=== PATIENT | female | born 1950 | race Caucasian/White ===

== ENCOUNTER 2017-03-20 16:50 | Observation (INO) | payer MEDICARE ==
[~2017-03-20] VITALS: Ht 172.7 cm; Wt 80.0 kg
[2017-03-20 16:52] VITALS: BP 109/71; PULSE 81; RESP 16; TEMP 98.1; O2SAT 98
--- NOTE | 2017-03-20 17:00 | PD ---
Physical Exam Date Seen by Provider: March 20, 2017 Time Seen by Provider: 16:58 Narrative 67 yo female here for BP. Per patient BP was low in the 80s systolic. Feeling lightheaded at the time. No falls or injuries. NO chest pain or SOB. NO pain. Has felt nauseous and has blurry vision. Vitals sign stable. Patient awaiting bed placement. Data Data Last Documented VS Vital Signs Date Time Temp Pulse Resp B/P Pulse Ox O2 Delivery O2 Flow Rate FiO2 03/20/17 16:52 98.1 81 16 109/71 98 MDM Medical Record Reviewed: Yes Supervised Visit with ELIJAH: No Joey Lemons March 20, 2017 17:00
[2017-03-20] MEDS ORDERED: SODIUM CHLOR 0.9% 1000 ML INJ 1,000 ML IV ONE ×2 (17:15→18:45)
--- NOTE | 2017-03-20 17:42 | RADRPT ---
EXAM DATE/TIME: 03/20/2017 17:17 [facility] COMPARISON: No previous studies available for comparison. INDICATIONS : Palpitations. MEDICAL HISTORY : None. SURGICAL HISTORY : None. ENCOUNTER: Initial ACUITY: 1 day PAIN SCORE: 0/10 LOCATION: Bilateral chest FINDINGS: A single view of the chest demonstrates the lungs to be symmetrically aerated without evidence of mas s, infiltrate or effusion. The cardiomediastinal contours are unremarkable. Osseous structures are intact. CONCLUSION: Normal examination for a patient of this age. Caleb Baez MD on March 20, 2017 at 17:40 Board Certified Radiologist. This report was verified electronically.
[2017-03-20 17:46] VITALS: BP 99/71
[2017-03-20 17:47] LABS: AUTOMATED NEUTROPHIL # 7.6 TH/MM3 (1.8-7.7); BASOPHIL % 0.3 % (0.0-2.0); EOSINOPHIL # 0.2 TH/MM3 (0-0.4); EOSINOPHIL % 1.4 % (0.0-4.0); HEMATOCRIT 38.2 % (35.0-46.0); HEMO FLAGS DIFF FINAL; LYMPH % 31.3 % (9.0-44.0); LYMPHOCYTE # 3.9 TH/MM3 (1.0-4.8); MEAN CELL VOLUME 90.4 FL (80.0-100.0); MEAN CORPUSCULAR HEMOGLOBIN 29.5 PG (27.0-34.0); MEAN CORPUSCULAR HGB CONC 32.6 % (32.0-36.0); MONO % 5.7 % (0.0-8.0); NEUT % 61.3 % (16.0-70.0); PLATELET COUNT 295 TH/MM3 (150-450); RED BLOOD COUNT 4.22 MIL/MM3 (4.00-5.30); WHITE BLOOD COUNT 12.3 TH/MM3 (4.0-11.0)
--- NOTE | 2017-03-20 17:53 | RADRPT ---
EXAM DATE/TIME: 03/20/2017 17:37 [facility] COMPARISON: No previous studies available for comparison. INDICATIONS : Cephalgia with dizziness and blurred vision. RADIATION DOSE: 41.26 CTDIvol (mGy) MEDICAL HISTORY : Hypertension. Myocardial infarction. SURGICAL HISTORY : Cholecystectomy. Hysterectomy.Cervical fusion. ENCOUNTER: Initial ACUITY: 1 day PAIN SCALE: 3/10 LOCATION: cranial TECHNIQUE: Multiple contiguous axial images were obtained of the head. Using automated exposure control and adj ustment of the mA and/or kV according to patient size, radiation dose was kept as low as reasonably a chievable to obtain optimal diagnostic quality images. FINDINGS: CEREBRUM: The ventricles are normal for age. No evidence of midline shift, mass lesion, hemorrhage or acute in farction. No extra-axial fluid collections are seen. POSTERIOR FOSSA: The cerebellum and brainstem are intact. The 4th ventricle is midline. The cerebellopontine angle i s unremarkable. EXTRACRANIAL: The visualized portion of the orbits is intact. SKULL: The calvaria is intact. No evidence of skull fracture. CONCLUSION: Normal examination for a patient of this age. Caleb Baez MD on March 20, 2017 at 17:50 Board Certified Radiologist. This report was verified electronically.
[2017-03-20 17:57] LABS: ANION GAP 10 MEQ/L (5-15); AST (GOT) 15 U/L (15-37); BICARBONATE 25.8 MEQ/L (21.0-32.0); BLOOD UREA NITROGEN 20 MG/DL (7-18); CHLORIDE 105 MEQ/L (98-107); GLOMERULAR FILTRATION RATE 56 ML/MIN (>89); MAGNESIUM 2.4 MG/DL (1.5-2.5); POTASSIUM 3.2 MEQ/L (3.5-5.1); SODIUM (NA) 141 MEQ/L (136-145)
[2017-03-20 17:58] LABS: ALT (GPT) 21 U/L (10-53)
[2017-03-20 18:01] LABS: ALKALINE PHOSPHATASE 65 U/L (45-117); TOTAL BILIRUBIN ADULT 0.3 MG/DL (0.2-1.0)
[2017-03-20 18:05] LABS: CREATINE KINASE 88 U/L (26-192)
[2017-03-20 18:07] LABS: BLOOD, URINE NEG (NEG); COMMENT (UR) CULTURE INDICATED; CULTURE IF INDICATED CULTURE INDICATED; GLUCOSE,URINE NEG (NEG); KETONE, URINE NEG (NEG); MUCUS URINE FEW /lpf (OCC); NITRITE,URINE NEG (NEG); SQUAMOUS EPITHELIAL CELL URINE 2 /hpf (0-5); URINE COLOR YELLOW (YELLW/STRAW)
[2017-03-20 18:11] LABS: APTT (PATIENT) 24.1 SEC (24.3-30.1); INTERNATIONAL NORMALIZED RATIO 0.9 RATIO
[2017-03-20] MEDS ORDERED: PIPERACIL-TAZO 4.5 GM PREMIX 100 ML IV STA (18:45)
[2017-03-20 19:00] VITALS: BP 107/65; PULSE 65; RESP 16; O2SAT 98
--- NOTE | 2017-03-20 19:12 | PD ---
HPI Chief Complaint: Dizziness Time Seen by Provider: 17:13 Travel History International Travel<30 days: No Contact w/Intl Traveler<30days: No Traveled to known affect area: No History of Present Illness HPI 67 y/o female presents with dizziness with systolic blood pressure of 80 when she normally runs high. She's also been having nausea and general ill feeling with headache. She denies other concurrent complaints. She states she feels worse when she moves around. Duration is past couple hours. She states she's never had this before. Quality is lightheaded. Severity is feeling like gonna pass out and worsening. PFSH Past Medical History Cardiovascular Problems: Yes ([place], [place]) Past Surgical History Cholecystectomy: Yes Eye Surgery: Yes Hysterectomy: Yes Other Surgery: Yes (breaset augmentation, ) Social History Alcohol Use: No Tobacco Use: No Substance Use: No Allergies-Medications (Allergen,Severity, Reaction): Coded Allergies: Imitrex (Verified Allergy, Severe, HIGH BP, 03/20/17) Cipro (Verified Allergy, Intermediate, RASH, 03/20/17) Review of Systems Except as stated in HPI: all other systems reviewed are Neg Physical Exam Narrative GENERAL: Well-nourished, well-developed patient. SKIN: Warm and dry. HEAD: Normocephalic and atraumatic. EYES: No injection or drainage. ENT: No nasal drainage noted. NECK: Supple, trachea midline. CARDIOVASCULAR: Regular rate and rhythm RESPIRATORY: Breath sounds equal bilaterally. No accessory muscle use. GASTROINTESTINAL: Abdomen soft, non-tender, nondistended. EXTREMITIES: No edema. NEUROLOGICAL: Awake and alert. Motor and sensory grossly within normal limits. Normal speech. Data Data Last Documented VS Vital Signs Date Time Temp Pulse Resp B/P Pulse Ox O2 Delivery O2 Flow Rate FiO2 03/20/17 17:46 99/71 03/20/17 16:52 98.1 81 16 98 Orders Magnesium (Mg) (03/20/17 17:06) Phosphorus (Po4) (03/20/17 17:06) Complete Blood Count With Diff (03/20/17 17:06) Comprehensive Metabolic Panel (03/20/17 17:06) Ckmb (Isoenzyme) Profile (03/20/17 17:06) Troponin I (03/20/17 17:06) Urinalysis - C+S If Indicated (03/20/17 17:06) Act Partial Throm Time (Ptt) (03/20/17 17:06) Prothrombin Time / Inr (Pt) (03/20/17 17:06) Chest, Single Ap (03/20/17 ) Electrocardiogram (03/20/17 ) Blood Culture (03/20/17 17:06) Iv Access Insert/Monitor (03/20/17 17:06) Ecg Monitoring (03/20/17 17:06) Oximetry (03/20/17 17:06) Type And Screen (03/20/17 17:06) Lactic Acid (03/20/17 17:06) Ct Brain W/O Iv Contrast(Rout) (03/20/17 ) Sodium Chlor 0.9% 1000 Ml Inj (Ns 1000 M (03/20/17 17:15) Urine Culture (03/20/17 17:45) Piperacil-Tazo 4.5 Gm Premix (Zosyn 4.5 (03/20/17 18:45) Sodium Chlor 0.9% 1000 Ml Inj (Ns 1000 M (03/20/17 18:45) Admit Order (Ed Use Only) (03/20/17 18:51) Labs Laboratory Tests Test 03/20/17 03/20/17 03/20/17 03/20/17 17:05 17:25 17:32 17:45 White Blood Count 12.3 TH/MM3 Red Blood Count 4.22 MIL/MM3 Hemoglobin 12.4 GM/DL Hematocrit 38.2 % Mean Corpuscular Volume 90.4 FL Mean Corpuscular Hemoglobin 29.5 PG Mean Corpuscular Hemoglobin 32.6 % Concent Red Cell Distribution Width 14.0 % Platelet Count 295 TH/MM3 Mean Platelet Volume 8.2 FL Neutrophils (%) (Auto) 61.3 % Lymphocytes (%) (Auto) 31.3 % Monocytes (%) (Auto) 5.7 % Eosinophils (%) (Auto) 1.4 % Basophils (%) (Auto) 0.3 % Neutrophils # (Auto) 7.6 TH/MM3 Lymphocytes # (Auto) 3.9 TH/MM3 Monocytes # (Auto) 0.7 TH/MM3 Eosinophils # (Auto) 0.2 TH/MM3 Basophils # (Auto) 0.0 TH/MM3 CBC Comment DIFF FINAL Differential Comment Prothrombin Time 10.0 SEC Prothromb Time International 0.9 RATIO Ratio Activated Partial 24.1 SEC Thromboplast Time Sodium Level 141 MEQ/L Potassium Level 3.2 MEQ/L Chloride Level 105 MEQ/L Carbon Dioxide Level 25.8 MEQ/L Anion Gap 10 MEQ/L Blood Urea Nitrogen 20 MG/DL Creatinine 1.00 MG/DL Estimat Glomerular Filtration 56 ML/MIN Rate Random Glucose 111 MG/DL Calcium Level 8.7 MG/DL Phosphorus Level 2.2 MG/DL Magnesium Level 2.4 MG/DL Total Bilirubin 0.3 MG/DL Aspartate Amino Transf 15 U/L (AST/SGOT) Alanine Aminotransferase 21 U/L (ALT/SGPT) Alkaline Phosphatase 65 U/L Total Creatine Kinase 88 U/L Troponin I LESS THAN 0.02 NG/ML Total Protein 6.7 GM/DL Albumin 3.7 GM/DL Blood Type A POSITIVE Antibody Screen NEGATIVE Blood Bank Comment Lactic Acid Level 1.7 mmol/L Urine Color YELLOW Urine Turbidity HAZY Urine pH 7.0 Urine Specific [place] 1.026 Urine Protein NEG mg/dL Urine Glucose (UA) NEG mg/dL Urine Ketones NEG mg/dL Urine Occult Blood NEG Urine Nitrite NEG Urine Bilirubin NEG Urine Urobilinogen 2.0 MG/DL Urine Leukocyte Esterase LARGE Urine RBC 13 /hpf Urine WBC 29 /hpf Urine Squamous Epithelial 2 /hpf Cells Urine Mucus FEW /lpf Microscopic Urinalysis Comment CULTURE INDICATED MDM Medical Decision Making Medical Screen Exam Complete: Yes Emergency Medical Condition: Yes Medical Record Reviewed: Yes (past history confirmed) Interpretation(s) CBC & BMP Diagram 03/20/17 17:05 UA with UTI Last [address] 03/20/17 0000 Signed Impressions: Service Date/Time: Monday, March 20, 2017 17:37 - CONCLUSION: Normal examination for a patient of this age. Caleb Baez MD Chest X-Ray 03/20/17 0000 Signed Impressions: Service Date/Time: Monday, March 20, 2017 17:17 - CONCLUSION: Normal examination for a patient of this age. Caleb Baez MD Differential Diagnosis Renal failure, anemia, sepsis, hypovolemia Narrative Course Will check blood work, urinalysis, chest x-ray, CT brain and reevaluate Patient with UTI with hypotension. She responded IV fluid hydration. Given antibiotics and will place in the hospital for further care Physician Communication Physician Communication dr harp states to place in observation on the floor Diagnosis Primary Impression: UTI (urinary tract infection) Qualified Code: N39.0 - Urinary tract infection without hematuria, site unspecified Additional Impression: Hypotension Qualified Code: I95.9 - Hypotension, unspecified hypotension type Admitting Information Admitting Physician Requests: Observation Elvira Benitez MD March 20, 2017 19:12
[2017-03-20 19:39] VITALS: BP 103/56; PULSE 64; RESP 16; O2SAT 98
--- NOTE | 2017-03-20 21:10 | HHI.HP ---
HPI Service [facility] Primary Care Physician Mirella Schofield MD Admission Diagnosis uti, hypotension Chief Complaint: Lightheadedness, headache, weakness, low blood pressure Travel History International Travel<30 Days: No Contact w/Intl Traveler <30 Da: No Traveled to Known Affected Are: No Sepsis Criteria SIRS Criteria (2 or more): WBC > 56452, < 4000 or > 10% bands Sepsis Criteria (SIRS+source): Infect source susp/known Severe Sepsis (+one): Hypotension Criteria Outcome: Meets severe sepsis criteria History of Present Illness 67-year-old female with underlying hypertension presents to the ER secondary to some low blood pressures at home with feelings of lightheadedness and frontal headache which started around 3 PM today. She noted that she felt a little nauseated earlier as well. She's had no vomiting no chest pain. She noted her blood pressure at home was in the 80s over 50s on several occasions earlier today. This prompted her to contact her physician's office who instructed her to go to the ER due to the low blood pressure. On evaluation in the ER was noted her systolic pressure was in the upper 90s to low 100s. Heart rate has been stable in the 80s. Her white count level elevated at 12.3 and urinalysis noted for several abnormalities which could be seen with urinary tract infection. Patient specifically denies any urinary symptoms such as urinary frequency, dysuria, hematuria, urgency. She has had urinary tract infections in the past and states she does not feel like she has one now. Of note she was started on Lortab approximate 2 weeks ago by her pain management physician. She doesn't like narcotics and generally takes only one Lortab or less per day. She has not been following her blood pressure since starting on the Lortab and she has continued her blood pressure medication. She had been given IV fluids and antibiotics in the ER and feels somewhat better although she says she feels weak still. Still has slight headache in the frontal area but not the worst headache of her life and no sudden onset or thunderclap character. Review of Systems Constitutional: COMPLAINS OF: Fatigue, Dizziness Endocrine: DENIES: Abnorml menstrual pattern, Heat/cold intolerance, Polydipsia , Polyuria, Polyphagia Eyes: DENIES: Blurred vision, Diplopia, Eye inflammation, Eye pain, Vision loss , Photosensitivity, Double Vision Ears, nose, mouth, throat: DENIES: Tinnitus, Hearing loss, Vertigo, Nasal discharge, Oral lesions, Throat pain, Hoarseness, Ear Pain, Running Nose, Epistaxis, Sinus Pain, Toothache, Odynophagia Respiratory: DENIES: Apneas, Cough, Snoring, Wheezing, Hemoptysis, Sputum production, Shortness of breath Cardiovascular: DENIES: Chest pain, Palpitations, Syncope, Dyspnea on Exertion , PND, Lower Extremity Edema, Orthopnea, Claudication Gastrointestinal: COMPLAINS OF: Nausea, DENIES: Abdominal pain, Black stools, Bloody stools, BRB per rectum, Constipation, Diarrhea, GERD, Reflux, Vomiting, Difficulty Swallowing, Anorexia, See HPI Genitourinary: DENIES: Abnormal vaginal bleeding, Dysmenorrhea, Dyspareunia, Sexual dysfunction, Urinary frequency, Urinary incontinence, Urgency, Hematuria , Dysuria, Nocturia, Vaginal discharge Musculoskeletal: COMPLAINS OF: Back pain Integumentary: DENIES: Abnormal pigmentation, Pruritus, Rash, Nail changes, Breast masses, Breast skin changes, Nipple discharge Hematologic/lymphatic: DENIES: Bruising, Lymphadenopathy Immunologic/allergic: DENIES: Eczema, Urticaria Neurologic: COMPLAINS OF: Poor Balance Psychiatric: COMPLAINS OF: Anxiety Past Family Social History Past Medical History Anxiety Atherosclerosis of the aorta Lumbar disc degeneration with chronic low back pain Hypertension Migraine headaches Vertigo Past Surgical History Bilateral breast implants Corneal Lasik procedure Gallbladder surgery Hysterectomy Epidural spinal injections Reported Medications Calcium/vitamin D one daily Flexeril 10 mg at bedtime Duloxetine 60 mg a day Lortab 5/325 one twice a day when necessary pain Losartan/HCTZ 100/25 one daily Topiramate 50 mg a day B12 1000 g daily orally Allergies: Coded Allergies: Imitrex (Verified Allergy, Severe, HIGH BP, 03/20/17) Cipro (Verified Allergy, Intermediate, RASH, 03/20/17) Family History Mother and father had hypertension Brother had lung cancer Brother also had asthma Mother had a stroke and COPD as well as diabetes Social History No tobacco in 4 months prior to that smoked less than 1 cigarette per day for several years Rarely drinks alcohol Denies illicit drug use Lives with her and moved here from [place] She is retired from the [employer] Physical Exam Vital Signs Vital Signs Date Time Temp Pulse Resp B/P Pulse Ox O2 Delivery O2 Flow Rate FiO2 03/20/17 19:39 64 16 103/56 98 Room Air 03/20/17 19:00 65 16 107/65 Room Air 03/20/17 19:00 98 Room Air 03/20/17 17:46 99/71 03/20/17 16:52 98.1 81 16 109/71 98 Physical Exam GENERAL: This is a well-nourished, well-developed patient, in no apparent distress. SKIN: No rashes, ecchymoses or lesions. Cool and dry. HEAD: Atraumatic. Normocephalic. No temporal or scalp tenderness. EYES: Pupils equal round and reactive. Extraocular motions intact. No scleral icterus. No injection or drainage. ENT: Nose without bleeding, purulent drainage or septal hematoma. Throat without erythema, tonsillar hypertrophy or exudate. Uvula midline. Airway patent. NECK: Trachea midline. No JVD or lymphadenopathy. Supple, nontender, no meningeal signs. CARDIOVASCULAR: Regular rate and rhythm without murmurs, gallops, or rubs. RESPIRATORY: Clear to auscultation. Breath sounds equal bilaterally. No wheezes , rales, or rhonchi. GASTROINTESTINAL: Abdomen soft, non-tender, nondistended. No hepato-splenomegaly , or palpable masses. No guarding. MUSCULOSKELETAL: Extremities without clubbing, cyanosis, or edema. No joint tenderness, effusion, or edema noted. No calf tenderness. NEUROLOGICAL: Awake and alert. Cranial nerves II through XII intact. Motor and sensory grossly within normal limits. Five out of 5 muscle strength in all muscle groups. Normal speech. No temporal artery tenderness to palpation. Slight tenderness to palpation over frontal sinuses. Laboratory Laboratory Tests Test 03/20/17 03/20/17 03/20/17 03/20/17 17:05 17:25 17:32 17:45 White Blood Count 12.3 Red Blood Count 4.22 Hemoglobin 12.4 Hematocrit 38.2 Mean Corpuscular Volume 90.4 Mean Corpuscular Hemoglobin 29.5 Mean Corpuscular Hemoglobin 32.6 Concent Red Cell Distribution Width 14.0 Platelet Count 295 Mean Platelet Volume 8.2 Neutrophils (%) (Auto) 61.3 Lymphocytes (%) (Auto) 31.3 Monocytes (%) (Auto) 5.7 Eosinophils (%) (Auto) 1.4 Basophils (%) (Auto) 0.3 Neutrophils # (Auto) 7.6 Lymphocytes # (Auto) 3.9 Monocytes # (Auto) 0.7 Eosinophils # (Auto) 0.2 Basophils # (Auto) 0.0 CBC Comment DIFF FINAL Differential Comment Prothrombin Time 10.0 Prothromb Time International 0.9 Ratio Activated Partial 24.1 Thromboplast Time Sodium Level 141 Potassium Level 3.2 Chloride Level 105 Carbon Dioxide Level 25.8 Anion Gap 10 Blood Urea Nitrogen 20 Creatinine 1.00 Estimat Glomerular Filtration 56 Rate Random Glucose 111 Calcium Level 8.7 Phosphorus Level 2.2 Magnesium Level 2.4 Total Bilirubin 0.3 Aspartate Amino Transf 15 (AST/SGOT) Alanine Aminotransferase 21 (ALT/SGPT) Alkaline Phosphatase 65 Total Creatine Kinase 88 Troponin I LESS THAN 0.02 Total Protein 6.7 Albumin 3.7 Blood Type A POSITIVE Antibody Screen NEGATIVE Blood Bank Comment Lactic Acid Level 1.7 Urine Color YELLOW Urine Turbidity HAZY Urine pH 7.0 Urine Specific [place] 1.026 Urine Protein NEG Urine Glucose (UA) NEG Urine Ketones NEG Urine Occult Blood NEG Urine Nitrite NEG Urine Bilirubin NEG Urine Urobilinogen 2.0 Urine Leukocyte Esterase LARGE Urine RBC 13 Urine WBC 29 Urine Squamous Epithelial 2 Cells Urine Mucus FEW Microscopic Urinalysis Comment CULTURE INDICATED Date/Time Procedure Status Source Growth 03/20/17 18:00 Aerobic Blood Culture Received Blood Peripheral Pending 03/20/17 18:00 Anaerobic Blood Culture Received Blood Peripheral Pending 03/20/17 17:45 Urine Culture Received Urine Clean Catch Pending Result Diagram: 03/20/17 1705 03/20/17 1705 Imaging Last [address] 03/20/17 0000 Signed Impressions: Service Date/Time: Monday, March 20, 2017 17:37 - CONCLUSION: Normal examination for a patient of this age. Caleb Baez MD Chest X-Ray 03/20/17 0000 Signed Impressions: Service Date/Time: Monday, March 20, 2017 17:17 - CONCLUSION: Normal examination for a patient of this age. Caleb Baez MD Assessment and Plan Problem List: (1) Sepsis Status: Acute Plan: Blood pressures have been a bit low but this could be multifactorial associated with recent narcotic administration as well as possible underlying UTI. She seems to have responded well to IV fluids and her lactic acid level is normal. Continue IV fluids overnight and convert to oral antibiotics. Hopefully discharge home tomorrow. (2) Urine abnormality Status: Acute Plan: As noted above. Await culture and sensitivity. Hopefully convert to oral antibiotics tomorrow morning and sent home. (3) Chronic back pain Status: Chronic Plan: We'll be cautious with narcotics as her blood pressures a bit low. Continue outpatient with pain management. Continue duloxetine. (4) Hypertension Status: Chronic Plan: Blood pressure a bit low here possibly associated with narcotics and possible infection as noted above. We'll hold blood pressure medication for now. (5) Anxiety Status: Chronic Plan: Continue medication. Assessment and Plan Plan discharge tomorrow Code Status Full Discussed Condition With Patient and her as well as emergency room provider. Eusebio Garcia MD PhD March 20, 2017 21:10
[2017-03-20] MEDS ORDERED: ACETAMINOPHEN/HYDROcodone 325 MG/5 MG TAB PO PRN (21:15)
[2017-03-20] MEDS ORDERED: ONDANSETRON HCL 4 MG/2 ML VIAL IV PUSH PRN (21:15)
[2017-03-20 21:50] VITALS: BP 113/63
[2017-03-20] MEDS ORDERED: cefTRIAXone INJ 1,000 MG in SODIUM CHLORIDE 0.9% INJ 100 ML IV SCH (22:00)
[2017-03-21] MEDS: NS + KCL 20 MEQ INJ 1,000 ML IV SCH ×2 (00:25→05:15)
[2017-03-21 00:42] VITALS: BP 101/59; PULSE 63; RESP 18; TEMP 98.8; O2SAT 98
[2017-03-21 04:24] VITALS: BP_SYST 123; BP_SYST 178; BP_DIAS 108; BP_DIAS 57; PULSE 79; PULSE 88; RESP 16; RESP 18; TEMP 98.5; O2SAT 95; O2SAT 97
[2017-03-21 07:41] LABS: AUTOMATED NEUTROPHIL # 5.9 TH/MM3 (1.8-7.7); BASOPHIL % 0.2 % (0.0-2.0); EOSINOPHIL # 0.2 TH/MM3 (0-0.4); EOSINOPHIL % 1.5 % (0.0-4.0); HEMATOCRIT 35.1 % (35.0-46.0); HEMO FLAGS DIFF FINAL; LYMPH % 37.1 % (9.0-44.0); LYMPHOCYTE # 3.9 TH/MM3 (1.0-4.8); MEAN CELL VOLUME 90.8 FL (80.0-100.0); MEAN CORPUSCULAR HEMOGLOBIN 29.9 PG (27.0-34.0); MEAN CORPUSCULAR HGB CONC 32.9 % (32.0-36.0); MONO % 5.2 % (0.0-8.0); PLATELET COUNT 246 TH/MM3 (150-450); RED BLOOD COUNT 3.87 MIL/MM3 (4.00-5.30); RED CELL DISTRIBUTION WIDTH 13.8 % (11.6-17.2); WHITE BLOOD COUNT 10.6 TH/MM3 (4.0-11.0)
[2017-03-21 08:00] VITALS: BP_SYST 118; BP_SYST 123; BP_DIAS 57; BP_DIAS 71; PULSE 70; PULSE 79; RESP 16; RESP 20; TEMP 97.3; TEMP 98.5; O2SAT 95; O2SAT 96
[2017-03-21 08:10] LABS: BICARBONATE 25.8 MEQ/L (21.0-32.0); POTASSIUM 3.6 MEQ/L (3.5-5.1)
[2017-03-21] MEDS ORDERED: ACETAMINOPHEN 325 MG TAB PO PRN (08:30)
[2017-03-21] MEDS ORDERED: CYCL1TAB29 PO (08:42)
[2017-03-21] MEDS ORDERED: NORC5TAB PO (08:42)
[2017-03-21] MEDS ORDERED: TOPA25TA8 PO (08:42)
[2017-03-21] MEDS ORDERED: LOSA100T2 PO ×2 (08:42→14:07)
[2017-03-21] MEDS ORDERED: DULO1CAP3 PO (08:42)
--- NOTE | 2017-03-21 08:55 | HHI.DCPOC ---
Discharge Care Plan Diagnosis: (1) Hypotension (2) Urine abnormality (3) Chronic back pain (4) Hypertension (5) Anxiety Goals to Promote Your Health - Pt reports that she has had an intentional weight loss of 23lbs over the last 2 months. It may be that her BP medications in combination with the pain medications in the setting of recent weight loss which and possible need for BP medications is what drove her BP too low yesterday. She does not seem to have any obvious signs of infection. - She is to monitor her BP daily at home and if her systolic BP (top number) is above 130 then she can take her Losartan/HCTZ. If its below that she will hold the anti-hypertensives. Pt is to keep a BP log at home with her BP reading, pulse, and time of day the reading was taken and give this to her PCP at followup. - The pt is to hold the Lortab and can use Tylenol as needed for pain. - We will have her followup with her PCP, Dr. Schofield next week, call for an appt. Directions to Meet Your Goals Take your medications as prescribed Follow your dietary instruction Follow activity as directed Keep your appointments as scheduled Take your immunizations and boosters as scheduled If your symptoms worsen call your PCP, if no PCP go to Urgent Care Center or Emergency Room Smoking is Dangerous to Your Health. Avoid second hand smoke Call the 24-hour hour crisis hotline for domestic abuse at Tiff[facility] Nolasco March 21, 2017 08:55
[2017-03-21 09:00] VITALS: BP 117/76; PULSE 68
[2017-03-21] MEDS ORDERED: TOPIRAMATE 25 MG TAB PO SCH (09:00)
[2017-03-21] MEDS ORDERED: PNEUMOCOCCAL POLYVALENT INJ 25 MCG/0.5 ML SYR IM ONE (09:00)
[2017-03-21] MEDS ORDERED: DULoxetine HCl DR 60 MG CAP PO SCH (09:00)
--- NOTE | 2017-03-21 09:13 | HHI.PR ---
Subjective Remarks Pt reports that she is still having a headache this morning. BP is better than yesterday. She denies any dizziness today but has not been up out of bed much. She denies any urinary symptoms, dysuria, urinary frequency or hematuria. Objective Vitals Vital Signs Date Time Temp Pulse Resp B/P Pulse Ox O2 Delivery O2 Flow Rate FiO2 03/21/17 08:00 98.5 79 16 123/57 95 03/21/17 04:24 98.5 79 16 123/57 95 03/21/17 00:42 98.8 63 18 101/59 98 03/20/17 21:50 69 20 113/63 98 03/20/17 19:39 64 16 103/56 98 Room Air 03/20/17 19:00 65 16 107/65 Room Air 03/20/17 19:00 98 Room Air 03/20/17 17:46 99/71 03/20/17 16:52 98.1 81 16 109/71 98 03/20/17 03/20/17 03/21/17 15:00 23:00 07:00 Intake Total 1000 ml 405 ml Balance 1000 ml 405 ml Intake Oral 405 ml IV Total 1000 ml Result Diagram: 03/21/17 0701 03/21/17 0701 Other Results Laboratory Tests Test 03/20/17 03/20/17 03/20/17 03/20/17 17:05 17:25 17:32 17:45 White Blood Count 12.3 TH/MM3 Red Blood Count 4.22 MIL/MM3 Hemoglobin 12.4 GM/DL Hematocrit 38.2 % Mean Corpuscular Volume 90.4 FL Mean Corpuscular Hemoglobin 29.5 PG Mean Corpuscular Hemoglobin 32.6 % Concent Red Cell Distribution Width 14.0 % Platelet Count 295 TH/MM3 Mean Platelet Volume 8.2 FL Neutrophils (%) (Auto) 61.3 % Lymphocytes (%) (Auto) 31.3 % Monocytes (%) (Auto) 5.7 % Eosinophils (%) (Auto) 1.4 % Basophils (%) (Auto) 0.3 % Neutrophils # (Auto) 7.6 TH/MM3 Lymphocytes # (Auto) 3.9 TH/MM3 Monocytes # (Auto) 0.7 TH/MM3 Eosinophils # (Auto) 0.2 TH/MM3 Basophils # (Auto) 0.0 TH/MM3 CBC Comment DIFF FINAL Differential Comment Prothrombin Time 10.0 SEC Prothromb Time International 0.9 RATIO Ratio Activated Partial 24.1 SEC Thromboplast Time Sodium Level 141 MEQ/L Potassium Level 3.2 MEQ/L Chloride Level 105 MEQ/L Carbon Dioxide Level 25.8 MEQ/L Anion Gap 10 MEQ/L Blood Urea Nitrogen 20 MG/DL Creatinine 1.00 MG/DL Estimat Glomerular Filtration 56 ML/MIN Rate Random Glucose 111 MG/DL Calcium Level 8.7 MG/DL Phosphorus Level 2.2 MG/DL Magnesium Level 2.4 MG/DL Total Bilirubin 0.3 MG/DL Aspartate Amino Transf 15 U/L (AST/SGOT) Alanine Aminotransferase 21 U/L (ALT/SGPT) Alkaline Phosphatase 65 U/L Total Creatine Kinase 88 U/L Troponin I LESS THAN 0.02 NG/ML Total Protein 6.7 GM/DL Albumin 3.7 GM/DL Blood Type A POSITIVE Antibody Screen NEGATIVE Blood Bank Comment Lactic Acid Level 1.7 mmol/L Urine Color YELLOW Urine Turbidity HAZY Urine pH 7.0 Urine Specific [place] 1.026 Urine Protein NEG mg/dL Urine Glucose (UA) NEG mg/dL Urine Ketones NEG mg/dL Urine Occult Blood NEG Urine Nitrite NEG Urine Bilirubin NEG Urine Urobilinogen 2.0 MG/DL Urine Leukocyte Esterase LARGE Urine RBC 13 /hpf Urine WBC 29 /hpf Urine Squamous Epithelial 2 /hpf Cells Urine Mucus FEW /lpf Microscopic Urinalysis Comment CULTURE INDICATED Test 03/21/17 07:01 White Blood Count 10.6 TH/MM3 Red Blood Count 3.87 MIL/MM3 Hemoglobin 11.6 GM/DL Hematocrit 35.1 % Mean Corpuscular Volume 90.8 FL Mean Corpuscular Hemoglobin 29.9 PG Mean Corpuscular Hemoglobin 32.9 % Concent Red Cell Distribution Width 13.8 % Platelet Count 246 TH/MM3 Mean Platelet Volume 8.2 FL Neutrophils (%) (Auto) 56.0 % Lymphocytes (%) (Auto) 37.1 % Monocytes (%) (Auto) 5.2 % Eosinophils (%) (Auto) 1.5 % Basophils (%) (Auto) 0.2 % Neutrophils # (Auto) 5.9 TH/MM3 Lymphocytes # (Auto) 3.9 TH/MM3 Monocytes # (Auto) 0.6 TH/MM3 Eosinophils # (Auto) 0.2 TH/MM3 Basophils # (Auto) 0.0 TH/MM3 CBC Comment DIFF FINAL Differential Comment Sodium Level 147 MEQ/L Potassium Level 3.6 MEQ/L Chloride Level 112 MEQ/L Carbon Dioxide Level 25.8 MEQ/L Anion Gap 9 MEQ/L Blood Urea Nitrogen 13 MG/DL Creatinine 0.89 MG/DL Estimat Glomerular Filtration 64 ML/MIN Rate Random Glucose 90 MG/DL Calcium Level 8.2 MG/DL Imaging Last [address] 03/20/17 0000 Signed Impressions: Service Date/Time: Monday, March 20, 2017 17:37 - CONCLUSION: Normal examination for a patient of this age. Caleb Baez MD Chest X-Ray 03/20/17 0000 Signed Impressions: Service Date/Time: Monday, March 20, 2017 17:17 - CONCLUSION: Normal examination for a patient of this age. Caleb Baez MD Objective Remarks General: NAD, AAOx3 Chest: CTA Cardiac: Regular Abd: +BS, soft ND/NT Ext: No edema A/P Problem List: (1) Hypotension Status: Acute Plan: - Pt is a 67 y/o female with HTN, migraine HAs and chronic back pain. - She presented to the ED on 03/20/17 with complaints of hypotension, headaches and dizziness. - Pt normally takes Losartan/HCTZ 100/25 once daily but around 1 week ago started taking [place] once daily for chronic back pain. - Her low blood pressures could be multifactorial associated with recent narcotic administration as well as possible underlying UTI. - She seems to have responded well to IV fluids and her lactic acid level is normal. - Stop the IVF - Encourage oral intake - No recent changes in the dosage of her anti-hypertensives - Pt reports that she has had an intentional weight loss of 23lbs over the last 2 months. It may be that her BP medications in combination with the pain medications in the setting of recent weight loss which and possible need for BP medications is what drove her BP too low yesterday. She does not seem to have any obvious signs of infection. - Pt is anxious for discharge. - We will have her monitor her BP daily at home and if her systolic BP is above 130 then she can take her Lostartan/HCTZ. If its below that she will hold the anti-hypertensives - The pt is to hold the [place] and can use Tylenol PRN for pain. - PT evaluation this morning and pt walked well without any issues. Her BP is stable. - We will have her followup with her PCP, Dr. Schofield next week. - (2) Urine abnormality Status: Acute Plan: - As noted above. - Await culture and sensitivity. - Pt was started on Rocephin IV at admission. - We will not continue Abx at discharge but the urine culture can be followed by on by her PCP. (3) Chronic back pain Status: Chronic Plan: - Continue outpatient with pain management. - Continue duloxetine. - Stop [place] upon discharge - Tylenol PRN for pain (4) Hypertension Status: Chronic Plan: - See above. (5) Anxiety Status: Chronic Plan: Continue medication. (6) Migraine headache Status: Chronic Plan: - Resume Topamax - Tylenol PRN Assessment and Plan Patient examined. Assessment and plan formulated with Tiffanie Nolasco PA-C. I agree with the above. Pt feels well and insisting on going home bp stable. no infectious sx's today. Pt had some medication substitutions from [facility] and it's unclear if this affected her and caused low pressure. she was told to hold pain med. given parameter for her bp med to hold if lower than 130. she will need close pcp f/u. f/u pending tests. Problem Qualifiers (1) Hypotension: Qualified Code: I95.9 - Hypotension, unspecified hypotension type Tiffanie Nolasco March 21, 2017 09:13 Albino Hollis MD March 21, 2017 20:37
--- NOTE | 2017-03-21 09:20 | EKG ---
Date Performed: 03/20/2017 Time Performed: 17:55:20 PTAGE: 67 years EKG: Sinus rhythm POSSIBLE LEFT ATRIAL ENLARGEMENT BORDERLINE ECG NO PREVIOUS TRACING DOCTOR: Adiel Oviedo Interpretating Date/Time 03/21/2017 09:18:46
[2017-03-21 12:00] VITALS: BP 134/72; PULSE 108; RESP 20; TEMP 97.3; O2SAT 91
== END 2017-03-21 14:38 | disposition home or self-care (01) ==
LOC: NEPC 16:50 → NEDA 18:52 → NEPGCP 22:04
PROVIDERS: ADMIT Hospitalist; ATTEND Hospitalist
DX: I95.9 Hypotension, unspecified (principal); I10 Essential (primary) hypertension; I70.0 Atherosclerosis of aorta; M51.36 Other intervertebral disc degeneration, lumbar region; G89.29 Other chronic pain; G43.909 Migraine, unspecified, not intractable, without status migrainosus; R82.90 Unspecified abnormal findings in urine; F41.9 Anxiety disorder, unspecified; I25.2 Old myocardial infarction; Z88.1 Allergy status to other antibiotic agents; Z88.8 Allergy status to other drugs, medicaments and biological substances
CPT/HCPCS: 70450; 71010; 80048; 80053; 81001; 82550; 83605; 83735; 84100; 84484; 85025; 85610; 85730; 86850; 86900; 86901; 87040; 87086; 93005; 96361; 96365; 96366; 97161; 99285; G0378; G8987; G8988; G8989; J0696; J2543; J3480; J7030